=== PATIENT | female | born 1960 | race African-American/Black ===

== ENCOUNTER → 2020-01-20 | Outpatient (CLI) | payer BC | LOC: RAD 15:18 | PROVIDERS: ATTEND Nurse Practitioner Family | DX: Z12.31 Encounter for screening mammogram for malignant neoplasm of breast (principal) ==

== ENCOUNTER 2020-10-15 06:10 | Inpatient (IN) | payer BC ==
[2020-10-15] VITALS (50 sets, daily range): BP systolic 52–122; BP diastolic 39–82
[~2020-10-15] VITALS: Ht 165.1 cm; Wt 106.6 kg
--- NOTE | ~2020-10-15 | HC ---
[facility] [place] [address] CONSULTATION Name: CARLOTA RASHEED Room #: 215-P ADM IN .R.#: [id number] Admission: 10/15/20 Attend Phys: Flory Rivera MD Discharge: Date of : 56 Report #: [id number] THIS REPORT FOR: cc: [facility] - Clinic physician unknown [facility] - Clinic physician unknown Hector Somers MD ~ DATE OF SERVICE: 10/19/2020 HISTORY OF PRESENT ILLNESS: The patient is a 60-year-old -Northern Irish female who was admitted to [facility] on 10/15/2000 with abdominal pain and chest pain. She has a history of exogenous obesity and underwent a tummy tuck with the panniculectomy on 10/13/2020, per chart notes. The patient was noted to have copious amounts of nausea and vomiting starting on 10/14/2020. Unable to tolerate p.o. intake. She then began having a pressure-like chest pain, feeling like she needed to vomit. She was admitted, noted to have an acute renal insufficiency, hypotension, acute blood loss, anemia and atypical chest pain. She had a creatinine that was elevated at 4.0 initially. She was seen by cardiology. Troponin was elevated with EKG changes, thought to be nonischemic. She was seen by gastroenterology and an EEG showed severe esophagitis with mild gastritis. She has significant weakness and debilitation. We are seeing her in rehabilitation medicine consultation. PAST MEDICAL HISTORY: Includes obesity. She had the tummy tuck as noted with the panniculectomy. She has had hypertension, hyperlipidemia, perirectal abscess at age 15. MEDICATIONS: Please see the full medication listing. FAMILY HISTORY: COPD with tobacco abuse by mother. HABITS: No history of tobacco or alcohol abuse. SOCIAL HISTORY: Lives with her spouse in a multilevel house. Gait was without gait aids. She does have one step in and there is either going up or down 5 or 6 steps. REVIEW OF SYSTEMS: No current complaints of chest pain, shortness of breath or abdominal discomfort. PHYSICAL EXAMINATION: GENERAL: A 60-year-old -Northern Irish female in no obvious distress. VITAL SIGNS: Last recorded temperature 37, pulse 90, respirations 18, and blood pressure 106/61. NEUROLOGIC: She is alert, pleasant, overweight white female in no obvious distress. Height 5 feet 5 inches, 235 pounds. She had the lower abdominal drains. Alert, appropriate. Functional range of motion of both upper and lower [facility] [address] [place] [address] CONSULTATION Name: CARLOTA RASHEED Room #: 215-P [facility] IN [facility]#: [id number] Admission: 10/15/20 Attend Phys: Flory Rivera MD Discharge: Date of : 56 Report #: [id number] extremities. Strength is grade 4-/5-3+/5. Tone appeared to be intact. No focal calf swelling. Functionally, she is min assist; sit to stand. Gait was 15 feet min assist with a front-wheeled walker. She is min assist for commode transfers. ASSESSMENT: A 60-year-old -Northern Irish female with the following problem list: 1. Medical complexity with generalized debilitation. 2. Acute blood loss anemia with EGD showing severe erosive esophagitis. 3. Acute renal failure, noted to be prerenal, now improved post fluids. 4. Hypotension, improved post fluids. 5. Status post panniculectomy/tummy tuck procedure. 6. Obesity with BMI 39.1. PLAN: The patient would be a candidate for a short acute in-hospital inpatient rehabilitation stay. We have a rehab maciel here in the hospital itself, which would allow for good continuity of care of the involved physicians that are involved in her care. She has had a significant decline from her premorbid functional status. Insurance precertification issues to be checked. We will be glad to follow along with you. By: [phone] Hector Somers MD /nt
[2020-10-15] MEDS ORDERED: PERCOCET 7.5-31 EAC1 PO (06:24)
[2020-10-15] MEDS ORDERED: ONDANSETRON HCL4 M2 PO (06:24)
[2020-10-15] MEDS ORDERED: CEPHALEXIN500 MG PO (06:25)
[2020-10-15] MEDS ORDERED: DIAZEPAM 5 MG5 M1 PO (06:27)
[2020-10-15] MEDS ORDERED: BENICAR 5 MG5 M1 PO (06:29)
[2020-10-15 07:26] LABS: ABSOLUTE NEUTROPHILS 7.6 thou/uL (1.4-8.2); BASOPHILS 0.1 % (0.0-2.0); HEMATOCRIT 22.9 % (37.0-47.0); LYMPHOCYTES 12.6 % (24.0-44.0); MCH 29.9 pg (26.0-34.0); MCHC 34.8 g/dL (28.0-37.0); MCV 85.8 fL (80.0-100.0); MONOCYTES 15.8 % (1.0-8.0); PLATELET COUNT 193 thou/uL (150-400); POLYS 71.5 % (36.0-66.0); RBC 2.66 mil/uL (4.20-5.00); RDW 12.6 % (10.5-14.5); WBC 10.6 thou/uL (4.0-11.0)
[2020-10-15 07:34] LABS: ANION GAP 0 mmol/L (7-16); BUN 43 mg/dL (7-18); CALCIUM 10.1 mg/dL (8.5-10.1); CHLORIDE 100 mmol/L (98-107); CO2 36 mmol/L (21-32); GLUCOSE 127 mg/dL (74-106); POTASSIUM 4.2 mmol/L (3.5-5.1); SODIUM 136 mmol/L (136-145)
[2020-10-15 07:44] LABS: ALBUMIN 2.8 g/dL (3.4-5.0); LIPASE 36 U/L (73-393); SGOT 10 U/L (15-37); SGPT 13 U/L (14-59); TOTAL BILIRUBIN 0.5 mg/dL (0.2-1.0); TOTAL PROTEIN 5.5 g/dL (6.4-8.2); TROPONIN-I <0.06 ng/mL (<0.06)
--- NOTE | 2020-10-15 07:58 | NUR ---
THIS SPACE BUYER TO BEDSIDE WITH US FOR IV PLACEMENT BUT WAS UNSUCESSFUL ERP UPDATED AT THIS TIME
[2020-10-15 10:04] LABS: URINE BILIRUBIN NEGATIVE (Negative); URINE BLOOD NEGATIVE (Negative); URINE CLARITY CLEAR; URINE COLOR YELLOW; URINE GLUCOSE-RANDOM* NEGATIVE (Negative); URINE KETONES NEGATIVE (Negative); URINE LEUKOCYTES-REFLEX NEGATIVE (Negative); URINE NITRITE-REFLEX NEGATIVE (Negative); URINE PROTEIN (DIPSTICK) NEGATIVE (Negative); URINE UROBILINOGEN 0.2 E.U./dl (0.2-1.0)
[2020-10-15 13:30] LABS: HEMATOCRIT 18.8 % (37.0-47.0); HEMOGLOBIN 6.4 gm/dL (12.0-15.0)
[2020-10-15 18:51] LABS: HEMATOCRIT 20.4 % (37.0-47.0); MCH 30.4 pg (26.0-34.0); MCHC 34.3 g/dL (28.0-37.0); MCV 88.6 fL (80.0-100.0); RBC 2.3 mil/uL (4.20-5.00); RDW 12.9 % (10.5-14.5); WBC 8.2 thou/uL (4.0-11.0)
[2020-10-15 19:01] LABS: CALCIUM 8.7 mg/dL (8.5-10.1)
--- NOTE | 2020-10-15 19:44 | NUR ---
PT ADMITED FROM ER. ADMISSION HISTORY AND ASSESSMENT COMPLETED. PT RECEIVED 1 UNIT OF BLOOD. HAD LOW BP. ORDERS GIVEN TO INFUSE LEVO. NEW ORDERS NOTED.
[2020-10-16] VITALS (58 sets, daily range): BP systolic 90–135; BP diastolic 48–72
[2020-10-16 01:53] LABS: HEMATOCRIT 25.3 % (37.0-47.0); HEMOGLOBIN 8.6 gm/dL (12.0-15.0); MCH 30.5 pg (26.0-34.0); MCV 89.7 fL (80.0-100.0); RBC 2.82 mil/uL (4.20-5.00); RDW 13.5 % (10.5-14.5); WBC 9.9 thou/uL (4.0-11.0)
--- NOTE | 2020-10-16 03:58 | NUR ---
0000 UPDATED PT FATHER AND SISTER KAROLYN ON PT CONDITION
[2020-10-16 09:44] LABS: ALBUMIN 2.4 g/dL (3.4-5.0); CALCIUM 9.5 mg/dL (8.5-10.1); CREATININE 1.7 mg/dL (0.6-1.0); MAGNESIUM 1.9 mg/dL (1.8-2.4); PHOSPHORUS 3.6 mg/dL (2.6-4.7); POTASSIUM 4.6 mmol/L (3.5-5.1)
--- NOTE | 2020-10-16 14:28 | EKG ---
[address] [place] [address] ELECTROCARDIOGRAM REPORT Name: CARLOTA RASHEED Room #: 241-P [facility] IN .R.#: [id number] Admission: 10/15/20 Attend Phys: Flory Rivera MD Discharge: Date of : 56 Report #: [id number] [facility] ED Test Date: 2020-10-15 Test Time: 06:17:15 Pat Name: CARLOTA RASHEED Department: Room: 241 Gender: F Oncology Nurse Navigator: MPA : 1960 Requested By: Hebrert Abarca Order Number: [id number] MD: Gregory Hennessy Measurements Intervals [place] Rate: 91 P: 10 DE: 161 QRS: 15 QRSD: 92 T: 27 QT: 340 QTc: 419 Interpretive Statements Sinus rhythm No significant abnormality No previous ECG available for comparison Electronically Signed On 10-16-2020 14:28:26 CDT by Gregory Hennessy [email or web address] <ELECTRONICALLY SIGNED> By: Gregory Hennessy MD, [facility] 10/16/20 1428 0617 6 Gregory Hennessy MD, FACC /EPI
[2020-10-16 14:30] LABS: ABSOLUTE NEUTROPHILS 4.7 thou/uL (1.4-8.2); BASOPHILS 0.3 % (0.0-2.0); EOSINOPHILS 1.1 % (0.0-3.0); HEMATOCRIT 21.4 % (37.0-47.0); HEMOGLOBIN 7.5 gm/dL (12.0-15.0); LYMPHOCYTES 17.7 % (24.0-44.0); MCV 88.3 fL (80.0-100.0); PLATELET COUNT 134 thou/uL (150-400); POLYS 67.9 % (36.0-66.0); RBC 2.43 mil/uL (4.20-5.00); RDW 13.5 % (10.5-14.5)
--- NOTE | 2020-10-16 14:34 | EKG ---
[address] [place] [address] ELECTROCARDIOGRAM REPORT Name: CARLTOA RASHEED Room #: 241-P [facility] IN M.R.#: [id number] Admission: 10/15/20 Attend Phys: Flory Rivera MD Discharge: Date of : 56 Report #: [id number] [facility] Test Date: 2020-10-15 Test Time: 14:31:49 Pat Name: CARLOTA RASHEED Department: Room: 241 Gender: F Curator Of Education: : 1960 Requested By: Flory Rivera Order Number: [id number] MD: Gregory Hennessy Measurements Intervals [place] Rate: 81 P: 29 FL: 167 QRS: 7 QRSD: 96 T: -1 QT: 373 QTc: 433 Interpretive Statements Sinus rhythm Poor R wave progression Compared to ECG 10/15/2020 06:17:15 No significant change was found Electronically Signed On 10-16-2020 14:33:50 CDT by Gregory Hennessy [email or web address] <ELECTRONICALLY SIGNED> By: Gregory Hennessy MD, [facility] 10/16/20 1433 143 143 Gregory Hennessy MD, FACC /EPI
[2020-10-16 14:36] LABS: CALCIUM 9.2 mg/dL (8.5-10.1); CREATININE 1.1 mg/dL (0.6-1.0); POTASSIUM 4.2 mmol/L (3.5-5.1)
--- NOTE | 2020-10-16 18:51 | NUR ---
PT ALERT AND ORIENTED. VSS. OFF LEVO. PRN AND SCHEDULED PAIN MED GIVEN WITH PARTIAL RELIEF FOR ABD PAIN. SURGICAL INTACT WITH RIVAS. 3 MIGUEL DRAIN INTACT AND PATENT. ORDERS GIVEN TO TRANSFUSE 1 UNIT OF BLOOD. AT THE BEDSIDE. UPDATED ON PT'S PROGRESS AND PLAN OF CARE. ORDERS GIVEN TO TRANSFER PT TO CCU ROOM 215. REPORT CALLED IN TO THE NURSE. PT TRANSFERED TO CCU IN STABLE CONDITION.
[2020-10-17] VITALS (7 sets, daily range): BP systolic 102–134; BP diastolic 39–81
[2020-10-17 05:30] LABS: ALBUMIN 2.2 g/dL (3.4-5.0); CALCIUM 8.4 mg/dL (8.5-10.1); PHOSPHORUS 3.1 mg/dL (2.5-4.9); POTASSIUM 4.4 mmol/L (3.5-5.1)
--- NOTE | 2020-10-17 07:22 | NUR ---
RECEIVED REPORT FROM LUIS ANGEL COELLO.BLOOD TRANSFUSION WAS DONE AT 2030.NO TRANSFUSION REACTION NOTED.PT PREFERS TO SLEEP ON THE RECLINER.PAIN FAIRLY CONTROLLED.HAS BEEN NPO EXCEPT FOR MEDS FOR A POSSIBLE PROCEDURE.MONITOR SHOWS SR.POC CONTINUED.
--- NOTE | 2020-10-17 13:47 | 2DMMODE ---
[place] [address] 2 D/M-MODE ECHOCARDIOGRAM Name: CARLOTA RASHEED Room #: 215-P ADM IN M.R.#: [id number] Admission: 10/15/20 Attend Phys: Flory Rivera MD Discharge: Date of : 56 Report #: [id number] THIS REPORT FOR: cc: [facility] - [facility] physician unknown [facility] - Clinic physician unknown Ankit Cat MD ~ APPROVED REPORT Study performed: 10/17/2020 10:20:05 EXAM: Comprehensive 2D, Doppler, and color-flow Echocardiogram Patient Location: Bedside Room #: 215 Status: routine BSA: 2.12 HR: 87 bpm BP: 125/59 mmHg Rhythm: NSR Other Information Study Quality: Adequate Indications Chest Pain 2D Dimensions IVSd: 12.29 (7-11mm) LVOT Diam: 20.52 (18-24mm) LVDd: 38.78 mm PWd: 13.34 (7-11mm) Ascending Ao: 32.18 (22-36mm) LVDs: 20.38 (25-40mm) Left Atrium: 29.29 (27-40mm) Aortic Root: 29.09 mm Aortic Valve AoV Peak Oleg.: 1.73 m/s AO Peak Gr.: 11.96 mmHg Mitral Valve E/A Ratio: 0.7 MV Decel. Time: 295.70 ms MV E Max Oleg.: 0.61 m/s MV A Oleg.: 0.87 m/s MV PHT: 85.75 ms IVRT: 156.[address] [place] [address] 2 D/M-MODE ECHOCARDIOGRAM Name: CARLOTA RASHEED Room #: 215-P [facility] IN ..#: [id number] Admission: 10/15/20 Attend Phys: Flory Rivera, Discharge: Date of : 56 Report #: [id number] Pulmonary Valve PV Peak Oleg.: 1.33 m/s PV Peak Gr.: 7.05 mmHg Pulmonary Vein P Vein S: 0.46 m/s P Vein A: 0.31 m/s P Vein D: 0.39 m/s P Vein A Dur.: 87.7 msec P Vein S/D Ratio: 1.18 Left Ventricle The left ventricle is normal size. There is normal LV segmental wall motion. Mild concentric left ventricular hypertrophy. Left ventricular systolic function is hyperdynamic. LVEF is 65-70%. Grade I - abnormal relaxation pattern. Right Ventricle The right ventricle is normal size. The right ventricular systolic function is normal. Atria The left atrium size is normal. The right atrium size is normal. Aortic Valve The aortic valve is mildly sclerotic. No aortic regurgitation is present. There is no aortic valvular stenosis. Mitral Valve The mitral valve is normal in structure. There is no mitral valve regurgitation noted. No evidence of mitral valve stenosis. Tricuspid Valve The tricuspid valve is normal in structure. There is no tricuspid valve regurgitation noted. Pulmonic Valve The pulmonary valve is normal in structure. There is no pulmonic valvular regurgitation. Great Vessels The aortic root is normal in size. IVC is normal in size and collapses >50% with inspiration. Pericardium There is no pericardial effusion. [address] [address] 2 D/M-MODE ECHOCARDIOGRAM Name: CARLOTA RASHEED Room #: 215-P [facility] IN ..#: [id number] Admission: 10/15/20 Attend Phys: Flory Rivera, Discharge: Date of : 56 Report #: [id number] <Conclusion> The left ventricle is normal size. Mild concentric left ventricular hypertrophy. Left ventricular systolic function is hyperdynamic. Grade I - abnormal relaxation pattern. The right ventricle is normal size. The left atrium size is normal. The aortic valve is mildly sclerotic. There is no mitral valve regurgitation noted. <ELECTRONICALLY SIGNED> By: Ankit Cat MD 10/17/20 1347 1347 46 Ankit Cat MD /INF
--- NOTE | 2020-10-17 17:47 | NUR ---
PT REFUSING TO AMBULATE OR USE INCENTIVE SPIROMETER. ALL ATTEMPTS HAVE BEEN MADE TO EDUCATED AND MOTIVATE. PT AFEBRILE, ADEQUATE UOP, NO BM, NPO. EGD TODAY, PT HAS NOT RETURNED TO CCU OF 1748. HGB STABLE ON AM RE-DRAW. RIGHT IJ IN PLACE, FRAGOSO LINE DOES NOT DRAW. IV ACCESS TEAM HAS BEEN UPDATED ON RADIOLOGY NOTE TO PULL LINE BACK, AND THAT FRAGOSO PORT DOES NOT DRAW. PT HAS 3 MIGUEL DRAINS FROM PUBIS, SITE'S SHOW MILD ERETHEMA WITH SANGENOUS DRAINAGE WITH SMALL CLOTS PRESENT. ECHO COMPLETED AT BEDSIDE. ABDOMINAL BINDER IN PLACE. PT AND MULTIPLE FAMILY MEMBERS HAVE BEEN THOUROUGHLY UPDATED AND EDUCATED ON PT CONDITION AND POC. PT SLOWLY PROGRESSING TOWARDS POC.
[2020-10-18] VITALS (7 sets, daily range): BP systolic 107–158; BP diastolic 55–77
[2020-10-18 02:20] LABS: ALBUMIN 2.1 g/dL (3.4-5.0); CALCIUM 8.1 mg/dL (8.5-10.1); CREATININE 0.8 mg/dL (0.6-1.0); PHOSPHORUS 2.7 mg/dL (2.6-4.7); POTASSIUM 4.1 mmol/L (3.5-5.1)
--- NOTE | 2020-10-18 05:58 | NUR ---
HEART RATE IN THE 115'S AT SHIFT CHANGE AFTER DAY SHIFT GAVE IV METOPROLOL.PT HEART RATE GOING UP TO IN THE 150'S.DR MOSELEY ORDERED CARDIZEM GTT.PT HR NOW IN THE 80'S.JOSE ARMANDO AND MIGUEL X 3 INTACT.POC CONTINUED.
[2020-10-19 06:25] LABS: ALBUMIN 2.3 g/dL (3.4-5.0); CALCIUM 7.9 mg/dL (8.5-10.1); CREATININE 0.9 mg/dL (0.6-1.0); PHOSPHORUS 2.2 mg/dL (2.5-4.9); POTASSIUM 3.5 mmol/L (3.5-5.1)
--- NOTE | 2020-10-19 07:31 | NUR ---
PATIENTS CARES WERE ASSUMED AT SHIFT CHANGE. PATIENT WAS ASESSED AND MEDS WERE PASSED. PATIENT DID SLEEP APPROX SEVEN HOURS AND WAS UP IN THE CHAIR. SHE DID START THE PROCESS OF GETTING WASHED UP. WAS AT THE BEDSIDE AT THE START OF THE SHIFT. ROUNDS WERE DONE AND PATIENT WAS DOWN GRADED TO A MED SURG PATIENT.WILL CONTINUE TO MONITOR
--- NOTE | 2020-10-19 07:33 | EKG ---
[address] [address] ELECTROCARDIOGRAM REPORT Name: CARLOTA RASHEED Room #: 215- ADM IN M.R.#: [id number] Admission: 10/15/20 Attend Phys: Flory Rivera MD Discharge: Date of : 56 Report #: [id number] [facility] Test Date: 2020-10-17 Test Time: 18:05:46 Pat Name: CARLOTA RASHEED Department: Room: 215 Gender: F Nutrient Management Specialist: UNKNOWN : 1960 Requested By: Flory Rivera Order Number: [id number] MD: Rahat Cortés Measurements Intervals [place] Rate: 115 P: [place]: QRS: 4 QRSD: 88 T: 17 QT: 319 QTc: 442 Interpretive Statements Atrial fibrillation Baseline wander in lead(s) V4 Compared to ECG 10/15/2020 14:31:49 Sinus rhythm no longer present Poor R-wave progression no longer present Electronically Signed On 10-19-2020 7:33:10 CDT by Rahat Cortés [email or web address] <ELECTRONICALLY SIGNED> By: Rahat Cortés MD, [facility] 10/19/20 0733 180 04 Rahat Cortés MD, [facility] /EPI
--- NOTE | 2020-10-19 07:33 | EKG ---
[address] [address] ELECTROCARDIOGRAM REPORT Name: CARLOTA RASHEED Room #: 215-P ADM IN M.R.#: [id number] Admission: 10/15/20 Attend Phys: Flory Rivera MD Discharge: Date of : 56 Report #: [id number] [facility] Test Date: 2020-10-17 Test Time: 18:07:12 Pat Name: CARLOTA RASHEED Department: Room: 215 Gender: F Shopper Insights Manager: UNKNOWN : 1960 Requested By: Flory Rivera Order Number: [id number] MD: Rahat Cortés Measurements Intervals [place] Rate: 131 P: AL: QRS: 7 QRSD: 87 T: 7 QT: 322 QTc: 476 Interpretive Statements Atrial fibrillation Borderline T abnormalities, inferior leads Compared to ECG 10/17/2020 18:05:46 T-wave abnormality now present Electronically Signed On 10-19-2020 7:33:12 CDT by Rahat Cortés [email or web address] <ELECTRONICALLY SIGNED> By: Rahat Cortés MD, [facility] 10/19/20732 06 06 Rahat Cortés MD, FACC /EPI
[2020-10-19 08:00] VITALS: BP 106/61
[2020-10-19 12:22] LABS: HEMATOCRIT 25.4 % (37.0-47.0); HEMOGLOBIN 8.8 gm/dL (12.0-15.0); MCH 30.7 pg (26.0-34.0); MCHC 34.5 g/dL (28.0-37.0); RBC 2.86 mil/uL (4.20-5.00); RDW 13.4 % (10.5-14.5); WBC 8.8 thou/uL (4.0-11.0)
--- NOTE | 2020-10-19 13:14 | P ---
[facility] [place] [address] PROCEDURE REPORT Name: CARLOTA RASHEED Room #: 215-P ADM IN .R.#: [id number] Admission: 10/15/20 Attend Phys: Flory Rivera MD Discharge: Date of : 56 Report #: [id number] THIS REPORT FOR: cc: [facility] - Clinic physician unknown [facility] - Clinic physician unknown Mane Weber MD ~ cc: Jaylen Johns MD DATE OF SERVICE: 10/17/2020 DATE OF PROCEDURE: 10/17/2020 PROCEDURE PERFORMED: Upper endoscopy with biopsies. HISTORY OF PRESENT ILLNESS: The patient is a 60-year-old female with anemia and odynophagia. She underwent plastic surgery of her abdomen 4 days ago and began having throat pain and painful swallowing. On admission, she was noted to be anemic with a hemoglobin of 6.4. She has been transfused 3 units of packed cells. She denies any obvious bright red blood per rectum or melena. She underwent a nuclear medicine bleeding scan on 10/15/2020, which was negative for evidence of GI bleed. She had a CT scan of her abdomen and pelvis. Surgical drains noted to be in place. No abscess. Otherwise, essentially negative. Hemoglobin at this time is 8.8. Plan is for upper endoscopy. DESCRIPTION OF PROCEDURE: The risks and benefits of the procedure were explained to the patient, those risks including but not limited to bleeding, perforation and the risk of sedation. She understood these risks and gave informed consent. Sedation was given using propofol per Anesthesia. Next, using a standard Olympus upper endoscope, the scope was placed in the patient's mouth and advanced under direct vision through the esophagus, stomach and into the second portion of the duodenum. The larynx was normal in appearance. The upper esophagus was normal. In the mid and distal esophagus; however, severe esophagitis was noted with ulcerations. No evidence of active bleeding, but the mucosa was very friable. Biopsies were obtained to rule out the possibility of CMV and herpes and the scope was advanced into the patient's stomach. The gastric fundus and upper body were normal. In the antrum, a mild gastritis was noted. Biopsies were obtained to rule out H. pylori. There was no evidence of bleeding throughout the exam today. The pylorus was normal and patent. The duodenal bulb, first and second portion were all normal. The scope was then withdrawn and the procedure terminated. The patient tolerated the procedure well. IMPRESSION: 1. Severe esophagitis in the mid and distal esophagus. This may be secondary to reflux or infectious etiology. 2. Mild gastritis. [address] [address] PROCEDURE REPORT Name: CARLOTA RASHEED Room #: 215-P [facility]..#: [id number] Admission: 10/15/20 Attend Phys: Flory Rivera MD Discharge: Date of : 56 Report #: [id number] 3. Otherwise, normal upper endoscopy. RECOMMENDATIONS: 1. Await biopsy results. 2. Recommend b.i.d. PPI therapy and liquid Carafate q.a.c. and at bedtime. We will advance diet slowly. 3. Continue to monitor hemoglobin. No signs of bleeding on upper endoscopy today. Thank you for allowing me to participate in her care. <ELECTRONICALLY SIGNED> By: Mane Weber MD 10/19/20 1314 1616 0111 Mane Weber MD /nt
--- NOTE | 2020-10-19 13:56 | NUR ---
SW met w/ pt at bedside to complete assessment on this day. Pt is A&Ox4. NOK: Spouse Fernanda [phone], Daughter Ly [phone] nsurance: BCBS Out of area PCP: Brandi Mac D.O Pt lives in split level home w/ 5 steps inside and 1 entry step into home ADL's: Independent w/ minimal assistance from spouse DME: None HH/SNF/LTACH/DIALYSIS/ACUTE REHAB: NO Hx COVID VACCINE: PFIZER 31 May 2020 Rx: [facility] [address] [place] [address] phone [phone] Transportation: W/C vs Family vehicle DPOA: None - SW encouraged - Pt declined at this time. Addtional Info: SW and pt discussed D/C plan for acute rehab. SW provided pt w/ edcucation about acute rehab. [facility] checking benefits as pt has out of are plan. Pt is agreeable to acute rehab in another facility if [facility] is out of network w/ plan. Pt shared that she has recently retired form [employer] about a month ago. Pt currently on O2 but does not use at home. SW will f.u w/ [facility] acute re[facility] about insurance benefits D/C plan: Acute rehab vs Home w/ HH
--- NOTE | 2020-10-19 15:50 | NUR ---
PATIENT SEEN BY DR. GRANT AND PATIENT IS A REHAB CANDIDATE. PATIENT HAS [employer] OUT OF STATE INSURANCE. INSURANCE COMPANY CONTACTED AND [facility] IS NOT IN NETWORK FOR PATIENT AND OON DEDUCTABLES/MAX OOP/CO-INSURANCES WOULD APPLY. PATIENT MADE DECISION TO GO WITH IN NETWORK PROVIDER OF REHAB SERVICES.
[2020-10-19 16:00] VITALS: BP 111/63
[2020-10-19 21:30] VITALS: BP 123/75
--- NOTE | 2020-10-20 03:46 | NUR ---
PT WAS TRANSFERRED TO THE UNIT FROM IN A STABLE CONDITION.PT UP WITH ASSIST/GB/WALKER TO [facility].PT REF TO WALK TO THE BR DUE TO PAIN.DDRSG INTACT WITH ABD BINDER IN PLACE.[address].PT ON 2L/NC.PT CONT ON IV ABX.PT RESTING ON HER BED AT THIS TIME.CALL LIGHT WITHIN REACH.
[2020-10-20 06:59] LABS: HEMATOCRIT 24.4 % (37.0-47.0); HEMOGLOBIN 8.4 gm/dL (12.0-15.0); MCH 30.4 pg (26.0-34.0); MCHC 34.4 g/dL (28.0-37.0); MCV 88.4 fL (80.0-100.0); RBC 2.76 mil/uL (4.20-5.00); RDW 13.3 % (10.5-14.5); WBC 8.7 thou/uL (4.0-11.0)
[2020-10-20 07:25] VITALS: BP 118/73
--- NOTE | 2020-10-20 08:43 | NUR ---
ON-GOING ASSESSMENT: CM REVIEWED CHART AND SPOKE WITH LIASON FROM WHO DID CONFIRM REHAB HERE AT [facility] IS OUT OF NETWORK. CM MET WITH PATIENT TO DISCUSS THIS AT BEDSIDE AND THAT CM CAN CHECK OTHER ACUTE REHABS THAT MAY BE IN NETWORK. PT IS AGREEABLE WITH PLAN AND WANTED A REFERRAL SENT TO [facility]. CM SPOKE WITH LIAHERNESTO CONNOR WHO REPORTS THEY HAVE BEDS OPEN AND TO SEND REFERRAL AND SHE WILL REVIEW. REFERRAL WAS SENT AND AWAITING INPUT AT THIS TIME.
--- NOTE | 2020-10-20 08:45 | NUR ---
Pt insurance is out of network w/ [facility] acute [facility]hab. SW will send referrals to [facility] phone [phone] fax [phone] & [facility] phone [phone] fax [phone]. W/U in progress
--- NOTE | 2020-10-20 09:44 | EKG ---
[place] [address] [employer] [place] [address] ELECTROCARDIOGRAM REPORT Name: CARLOTA RASHEED Room #: 437-P ADM IN M.R.#: [id number] Admission: 10/15/20 Attend Phys: Flory Rivera MD Discharge: Date of : 56 Report #: [id number] [facility] Test Date: 2020-10-20 Test Time: 09:04:00 Pat Name: CARLOTA RASHEED Department: Room: 437 P Gender: F Bath Tester: TELMA : 1960 Requested By: Tennille Parisi Order Number: [id number] MD: Gregory Hennessy Measurements Intervals [place] Rate: 87 P: 6 MN: 185 QRS: -2 QRSD: 99 T: 45 QT: 372 QTc: 448 Interpretive Statements Sinus rhythm Left ventricular hypertrophy Compared to ECG 10/17/2020 18:07:12 Left ventricular hypertrophy now present Atrial fibrillation no longer present ST and T wave abnormality less pronounced Electronically Signed On 10-20-2020 9:44:45 CDT by Gregory Hennessy [email or web address] <ELECTRONICALLY SIGNED> By: Gregory Hennessy MD, [facility] 10/20/2044 3 Gregory Hennessy MD, [facility] /EPI
--- NOTE | 2020-10-20 09:52 | NUR ---
Latosha grace/ [facility] will meet w/ pt to discuss admission process. Pt is agreeable at this time. [facility] is in network and this has been explained to the pt. W/U in progress
--- NOTE | 2020-10-20 14:07 | PATH ---
[facility] [place] [address] PATHOLOGY RPT PROCEDURE Name: AMBER RASHEED Room #: 437-P ADM IN M.R.#: [id number] Admission: 10/15/20 Date of : 56 Discharge: Report #: [id number] Path Case #: [id number] [facility] Accession Number: [id number] . 01 Material submitted: . PART A: gastrointestinal site - GASTRIC BIOPSY R/O H. PYLORI PART B: esophagus - ESOPHAGEAL BIOPSY R/O CMV AND HSV . 01 Clinical history: . ODYNOPHAGIA JANNETH,N/V,CHEST PAIN . 02 Diagnosis: A. Gastric mucosa, gastric, rule out H. pylori, endoscopic biopsy: - Mild reactive gastropathy. - Negative for intestinal metaplasia or atrophy. - Negative for Helicobacter pylori (properly controlled immunohistochemical stain performed). . B. Squamous mucosa, esophageal, rule out CMV and HSV, endoscopic biopsy: - Fragments of fibrinopurulent material, consistent with ulceration. - Moderate to marked acute esophagitis. - Negative for intestinal metaplasia or dysplasia. (IUV:pit; 10/19/2020) QTP 10/19/2020 1213 Local . 02 Comment: B. CMV* and HSV-1* immunohistochemical stains are ordered as requested on part B and the results of these will be reported in an addendum to follow. . (IUV:pit; 10/19/2020) . *This test was developed and its performance characteristics determined by [facility]. It has not been cleared or approved by the U.S. Food and Drug Administration. The FDA has determined that such clearance or approval is not necessary. This test is used for clinical purposes. It should not be regarded as investigational or for research. This laboratory is certified under the Clinical Laboratory Improvement Amendments of 1988 (CLIA) as qualified to perform high complexity clinical laboratory testing. . 02 Addendum: . This addendum is issued subsequent to reviewing the properly controlled CMV and HSV1 immunohistochemical stains performed on block B1. The stains show no definite viral inclusions present. (IUV:cathy; 10/20/2020) . . [address] [address] PATHOLOGY RPT PROCEDURE Name: AMBER RASHEED Room #: 437-P [facility] IN M.R.#: [id number] Admission: 10/15/20 Date of : 56 Discharge: Report #: [id number] Path Case #: [id number] Professional services performed by [facility] at [facility], [address] [facility] , [place] [address]. Technical services performed by [facility] at [address] [place] [address], [address], [place] [address]. . [facility]10/20/2020 Addendum Electronically Signed by Heidi Toledo MD, Pathologist . 02 Electronically signed: . Heidi Toledo MD, Pathologist NPI- [id number] . 01 Gross description: . A. The specimen is submitted in formalin, labeled "Shahid, Amber, gastric biopsy". Received are 4 segments of pale renee tissue ranging in size from 0.3 to 0.6 cm in maximum dimensions. The specimen is submitted in cassette A1. . B. The specimen is submitted in formalin, labeled "Shahid, Amber, esophageal biopsy". Received are 3 segments of pale renee tissue ranging in size from 0.2 to 0.3 cm in maximum dimensions. The specimen is submitted in cassette B1. ([facility]; 10/18/2020) NRI/NRI 10/18/[address] [place] [address] . 02 Pathologist provided ICD-10: K31.9, K20.90 . 02 CPT . 455369, 588975, K23076, Z35106 Specimen Comment: A courtesy copy of this report has been sent to [phone], [phone] Specimen Comment: [id number] Specimen Comment: Report sent to / DR ACHARYA Performed at: [address] [facility], [place], [place] [id number] MD Bruno Cordon MD Phone: [phone] Performed at: 02 [facility] [address] [facility], [place], [place] [id number] MD Heidi Toledo MD Phone: [phone]
--- NOTE | 2020-10-20 15:35 | NUR ---
Pt is AxOx4. Last BM 10/12/20. She was OOB x 1 person assist to bedside commode. She a 3 MIGUEL drains draining sanguinous fluid. Abdomenal incision is stapled and BILINGUAL HR GENERALIST. She wears an abdominal binder. She has a right central line. She is receiving diet supplements. Does not eat hospital food well. Family is bringing outside food into hospital for her. Pt had a 12 lead EKG today showing NSR. She remains a high fall risk . Bed in low position. Call light is within reach. Will continue to monitor until end of shift.
[2020-10-20 17:00] VITALS: BP 110/66
[2020-10-20 20:59] VITALS: BP 114/69
--- NOTE | 2020-10-21 06:08 | NUR ---
PT SITTING IN CHAIR. PERCOXCET PROVIDING PAIN RELIEF. DENIES NAUSEA. RESTING COMFORTABLY. NO NEEDS VOICED. CALL LIGHT WITHIN REACH. FREQUENT OBSERVATION.
[2020-10-21 07:20] VITALS: BP 114/69
--- NOTE | 2020-10-21 08:33 | NUR ---
ON-GOING ASSESSMENT: cM WENT AND SPOKE WITH PATIENT AGAIN THIS AM. SHE REPORTS THAT HER FIRST CHOICE FOR REHAB IS AGAIN [facility]. CM DISCUSSED THAT [facility] WANTED HER PAIN MANAGED BETTER PRIOR TO STARTING AUTH AND THAT THIS HAS BEEN DISCUSSED WITH THE PHYSICIAN. PT REPORTS THAT HER NEW PAIN MED MAKES HER TIRED BUT SHE FEELS HER PAIN IS OK. CM NOTIF[facility] REQUESTING THEY SUBMIT FOR AUTH JEREMIAS THIS IS PATIENTS FIRST CHOICE OR PT WILL LIKELY NEED TO LOOK ELSEWHERE. LIASON STATING SHE WILL RELAY THIS AM IN THEIR MEETING AND LIKELY START AUTH BUT WILL TALK WITH THEIR PHYSICIAN AND LET CM KNOW. CM WILL CONTINUE TO FOLLOW.
--- NOTE | 2020-10-21 09:56 | EKG ---
[place] [address] [facility] [place] [address] ELECTROCARDIOGRAM REPORT Name: CARLOTA RASHEED Room #: 437- ADM IN M.R.#: [id number] Admission: 10/15/20 Attend Phys: Flory Rivera MD Discharge: Date of : 56 Report #: [id number] Test Date: 2020-10-21 Test Time: 09:35:20 Pat Name: CARLOTA RASHEED Department: Room: 437 Gender: F Reheater: TELMA : 1960 Requested By: Cindy Velasquez Order Number: [id number] MD: Gregory Hennessy Measurements Intervals [place] Rate: 97 P: 30 LA: 184 QRS: 2 QRSD: 94 T: 82 QT: 368 QTc: 468 Interpretive Statements Sinus rhythm Probable LVH with secondary repol abnrm Nonspecific ST segment abnormality Compared to ECG 10/20/2020 09:04:00 [address] change in the ST segments Electronically Signed On 10-21-2020 9:56:19 CDT by Gregory Hennessy [email or web address] <ELECTRONICALLY SIGNED> By: Gregory Hennessy MD, [facility] 10/21/2056 4 4 Gregory Hennessy MD, [facility] /EPI
[2020-10-21 10:16] LABS: HEMATOCRIT 23.6 % (37.0-47.0); HEMOGLOBIN 8.1 gm/dL (12.0-15.0); MCH 30.1 pg (26.0-34.0); MCHC 34.4 g/dL (28.0-37.0); MCV 87.7 fL (80.0-100.0); RBC 2.7 mil/uL (4.20-5.00); RDW 13.5 % (10.5-14.5); WBC 10.7 thou/uL (4.0-11.0)
[2020-10-21 10:26] LABS: CALCIUM 8.2 mg/dL (8.5-10.1); CREATININE 1.2 mg/dL (0.6-1.0)
--- NOTE | 2020-10-21 14:54 | NUR ---
ON-GOING ASSESSMENT: SHEILA SPOKE WITH PHILIP CONNOR FROM [facility] WHO REPORTS THEY RECEIVED INSURANCE AUTH ON PATIENT BUT NOW DO NOT HAVE A BED TODAY AND WILL LIKELY BE TOMORROW. SHE REPORTS TO CONTACT [facility] TOMORROW AT [phone] TO VERIFY AND LIKELY BE ABLE TO COME TO THEM OVER THE WEEKEND ONCE BED CONFIRMED AND SHE WILL FACILITATE DISCHARGE. [facility]X FOR [facility] [phone]. THEY WILL ARRANGE TRANSPORTATION. MAIN NUMBER FOR REPORT FOR [facility] IS [phone]. SHEILA NOTIFIED BEDSIDE RN AND PT THAT INSURANCE HAS APPROVED FOR HER TO GO TO HER FIRST CHOICE [facility] JUST WAITING ON THE BED. LIKELY DISCHARGE TOMORROW/THIS WEEKEND TO [facility] PLEASE FOLLOW UP WITH PHILIP AT NUMBER LISTED.
--- NOTE | 2020-10-21 16:12 | NUR ---
Pt is AXOX4. She does not like to move. She did get up to bathroom 1x today with encouragement. She prefers using the bedside commode. She thinks her IV abx (Vanco) is making her dizzy. Contacted the Dr. med changed to Clindaymcin 300mg po tid. I also asked for vitamins D3 and C. said he would speak to her tomorrow about that. Pt sits in dark room very lethargic all day long. Spoke to [facility] about discharge possibly on Saturday. Labs drawn per Central line and sent down. Pt prefers to sit is recliner call light is within reach. Will monitor until end of shift.
[2020-10-21 16:43] VITALS: BP 115/66
--- NOTE | 2020-10-22 04:52 | NUR ---
Pt. rested quietly at intervals during the night when checked on during frequent rounds. She c/o a headache and wanted some ibuprofen. Keke PINA notified and new order for po ibuprofen one time po (see cpoe) and emar. Prefers to sleep up in recliner chaIr. Up to the bedside comode with minimal assistance.
[2020-10-22 07:29] VITALS: BP 115/64
[2020-10-22 07:39] VITALS: BP 115/64
[2020-10-22 10:00] VITALS: BP 115/64
[2020-10-22] MEDS ORDERED: ELIQUIS5 MG PO (11:19)
[2020-10-22] MEDS ORDERED: CLEOCIN HCL150 MG PO (11:19)
[2020-10-22] MEDS ORDERED: DILTIAZEM 24HR180 M1 PO (11:20)
[2020-10-22] MEDS ORDERED: CARAFATE 11 GM/10 M1 PO (11:20)
[2020-10-22] MEDS ORDERED: PROTONIX 20 MG20 M1 PO (11:20)
--- NOTE | 2020-10-22 12:30 | NUR ---
PT ASSESSED AT START OF SHIFT. [facility] SO PT TRANSFERRING PER W/C TRANSPORT AT THIS TIME. RELISTOR SC GIVEN W/ SUPP AND NO RESULTS YET. VOIDING IN BSC AND BR. AMBULATING WELL W/ WALKER. PHONE REPORT GIVEN TO RECEIVING RN AT [facility]. DR. PALACIOS INFORMED OF TRANSFER.
== END 2020-10-22 12:42 | DRG 380 ==
LOC: ER 06:10 → EROBS 11:18 → ICU 11:18 → 2N 11:18 → ICU 14:15 → 2N 10-16 18:25 → 4S 10-19 22:10
PROVIDERS: Emergency Medicine; Hospitalist; Internal Medicine Nephrology; Nurse Practitioner; ADMIT Internal Medicine; ATTEND Internal Medicine
PROC: 30233N1 Transfusion of Nonautologous Red Blood Cells into Peripheral Vein, Percutaneous Approach (ICD-10-PCS; principal; 2020-10-15)
PROC: 02H633Z Insertion of Infusion Device into Right Atrium, Percutaneous Approach (ICD-10-PCS; principal; 2020-10-15)
PROC: 0DB58ZX Excision of Esophagus, Via Natural or Artificial Opening Endoscopic, Diagnostic (ICD-10-PCS; 2020-10-17)
PROC: 0DB78ZX Excision of Stomach, Pylorus, Via Natural or Artificial Opening Endoscopic, Diagnostic (ICD-10-PCS; 2020-10-17)
DX: K22.11 Ulcer of esophagus with bleeding (principal); R57.1 Hypovolemic shock; N17.9 Acute kidney failure, unspecified; D62 Acute posthemorrhagic anemia; K29.71 Gastritis, unspecified, with bleeding; E66.9 Obesity, unspecified; E78.5 Hyperlipidemia, unspecified; R53.81 Other malaise; I95.9 Hypotension, unspecified; R13.10 Dysphagia, unspecified; I12.9 Hypertensive chronic kidney disease with stage 1 through stage 4 chronic kidney disease, or unspecified chronic kidney disease; N18.9 Chronic kidney disease, unspecified; I48.0 Paroxysmal atrial fibrillation; Z20.822 Contact with and (suspected) exposure to COVID-19; Z88.6 Allergy status to analgesic agent; Z68.39 Body mass index [BMI] 39.0-39.9, adult; Z83.6 Family history of other diseases of the respiratory system; Z79.1 Long term (current) use of non-steroidal anti-inflammatories (NSAID)
CPT/HCPCS: 10078; 10081; 10102; 10797; 62110; 62900; 70005; 85076

== ENCOUNTER → 2020-11-30 | Outpatient (CLI) | payer BC, OTHER ==
[~2020-11-30] MED LIST: BENICAR 5 MG5 M1 PO; CARAFATE 11 GM/10 M1 PO; CEPHALEXIN500 MG PO; CLEOCIN HCL150 MG PO; DIAZEPAM 5 MG5 M1 PO; DILTIAZEM 24HR180 M1 PO; ELIQUIS5 MG PO; ONDANSETRON HCL4 M2 PO; PERCOCET 7.5-31 EAC1 PO; PROTONIX 20 MG20 M1 PO
== END ==
LOC: HYPER 09:18
PROVIDERS: ATTEND Emergency Medicine
DX: T81.31XA Disruption of external operation (surgical) wound, not elsewhere classified, initial encounter (principal); L98.492 Non-pressure chronic ulcer of skin of other sites with fat layer exposed; E66.01 Morbid (severe) obesity due to excess calories; I10 Essential (primary) hypertension; K21.9 Gastro-esophageal reflux disease without esophagitis; Z86.718 Personal history of other venous thrombosis and embolism; Z86.711 Personal history of pulmonary embolism; Z79.02 Long term (current) use of antithrombotics/antiplatelets; Z68.35 Body mass index [BMI] 35.0-35.9, adult; Y92.238 Other place in hospital as the place of occurrence of the external cause; Y83.8 Other surgical procedures as the cause of abnormal reaction of the patient, or of later complication, without mention of misadventure at the time of the procedure

== ENCOUNTER → 2020-12-09 | Outpatient (CLI) | payer BC, OTHER | LOC: HYPER 07:47 | PROVIDERS: ATTEND Emergency Medicine | DX: T81.31XD Disruption of external operation (surgical) wound, not elsewhere classified, subsequent encounter (principal); L98.492 Non-pressure chronic ulcer of skin of other sites with fat layer exposed; I10 Essential (primary) hypertension; E66.01 Morbid (severe) obesity due to excess calories; I26.99 Other pulmonary embolism without acute cor pulmonale; Z68.35 Body mass index [BMI] 35.0-35.9, adult; Z86.718 Personal history of other venous thrombosis and embolism; Z86.711 Personal history of pulmonary embolism; Z79.02 Long term (current) use of antithrombotics/antiplatelets; Z79.01 Long term (current) use of anticoagulants; Z79.899 Other long term (current) drug therapy; Y83.8 Other surgical procedures as the cause of abnormal reaction of the patient, or of later complication, without mention of misadventure at the time of the procedure ==

== ENCOUNTER → 2020-12-21 | Outpatient (CLI) | payer BC, OTHER | LOC: HYPER 07:58 | PROVIDERS: ATTEND Emergency Medicine | DX: T81.31XD Disruption of external operation (surgical) wound, not elsewhere classified, subsequent encounter (principal); L98.492 Non-pressure chronic ulcer of skin of other sites with fat layer exposed; E66.01 Morbid (severe) obesity due to excess calories; I10 Essential (primary) hypertension; K21.9 Gastro-esophageal reflux disease without esophagitis; Z68.35 Body mass index [BMI] 35.0-35.9, adult; Z86.718 Personal history of other venous thrombosis and embolism; Z86.711 Personal history of pulmonary embolism; Z79.02 Long term (current) use of antithrombotics/antiplatelets; Z79.01 Long term (current) use of anticoagulants; Y83.8 Other surgical procedures as the cause of abnormal reaction of the patient, or of later complication, without mention of misadventure at the time of the procedure ==

== ENCOUNTER → 2021-01-05 | Outpatient (CLI) | payer BC, OTHER | LOC: HYPER 08:26 | PROVIDERS: ATTEND Emergency Medicine | DX: T81.31XD Disruption of external operation (surgical) wound, not elsewhere classified, subsequent encounter (principal); L98.492 Non-pressure chronic ulcer of skin of other sites with fat layer exposed; L84 Corns and callosities; E66.01 Morbid (severe) obesity due to excess calories; I10 Essential (primary) hypertension; K21.9 Gastro-esophageal reflux disease without esophagitis; Z68.35 Body mass index [BMI] 35.0-35.9, adult; Z86.718 Personal history of other venous thrombosis and embolism; Z86.711 Personal history of pulmonary embolism; Z79.02 Long term (current) use of antithrombotics/antiplatelets; Z79.01 Long term (current) use of anticoagulants; Y83.8 Other surgical procedures as the cause of abnormal reaction of the patient, or of later complication, without mention of misadventure at the time of the procedure ==

== ENCOUNTER → 2021-01-19 | Outpatient (CLI) | payer BC, OTHER | LOC: HYPER 07:53 | PROVIDERS: ATTEND Emergency Medicine | DX: T81.31XD Disruption of external operation (surgical) wound, not elsewhere classified, subsequent encounter (principal); L98.492 Non-pressure chronic ulcer of skin of other sites with fat layer exposed; L84 Corns and callosities; E66.01 Morbid (severe) obesity due to excess calories; I10 Essential (primary) hypertension; K21.9 Gastro-esophageal reflux disease without esophagitis; Z68.35 Body mass index [BMI] 35.0-35.9, adult; Z86.718 Personal history of other venous thrombosis and embolism; Z86.711 Personal history of pulmonary embolism; Z79.02 Long term (current) use of antithrombotics/antiplatelets; Z79.01 Long term (current) use of anticoagulants; Y83.8 Other surgical procedures as the cause of abnormal reaction of the patient, or of later complication, without mention of misadventure at the time of the procedure ==

== ENCOUNTER → 2021-01-26 | Outpatient (CLI) | payer BC, OTHER | LOC: HYPER 10:04 | PROVIDERS: ATTEND Emergency Medicine | DX: T81.31XD Disruption of external operation (surgical) wound, not elsewhere classified, subsequent encounter (principal); L98.492 Non-pressure chronic ulcer of skin of other sites with fat layer exposed; L84 Corns and callosities; E66.01 Morbid (severe) obesity due to excess calories; I10 Essential (primary) hypertension; K21.9 Gastro-esophageal reflux disease without esophagitis; Z68.35 Body mass index [BMI] 35.0-35.9, adult; Z86.718 Personal history of other venous thrombosis and embolism; Z86.711 Personal history of pulmonary embolism; Z79.02 Long term (current) use of antithrombotics/antiplatelets; Z79.01 Long term (current) use of anticoagulants; Y83.8 Other surgical procedures as the cause of abnormal reaction of the patient, or of later complication, without mention of misadventure at the time of the procedure ==

== ENCOUNTER → 2021-02-13 | Outpatient (CLI) | payer BC, OTHER | LOC: HYPER 08:08 | PROVIDERS: ATTEND Emergency Medicine | DX: T81.31XD Disruption of external operation (surgical) wound, not elsewhere classified, subsequent encounter (principal); L98.492 Non-pressure chronic ulcer of skin of other sites with fat layer exposed; L84 Corns and callosities; E66.01 Morbid (severe) obesity due to excess calories; I10 Essential (primary) hypertension; K21.9 Gastro-esophageal reflux disease without esophagitis; Z68.35 Body mass index [BMI] 35.0-35.9, adult; Z86.718 Personal history of other venous thrombosis and embolism; Z86.711 Personal history of pulmonary embolism; Z79.02 Long term (current) use of antithrombotics/antiplatelets; Z79.01 Long term (current) use of anticoagulants; Y83.8 Other surgical procedures as the cause of abnormal reaction of the patient, or of later complication, without mention of misadventure at the time of the procedure ==

== ENCOUNTER → 2021-02-20 | Outpatient (CLI) | payer BC, OTHER | LOC: HYPER 10:10 | PROVIDERS: ATTEND Emergency Medicine | DX: T81.31XD Disruption of external operation (surgical) wound, not elsewhere classified, subsequent encounter (principal); L98.492 Non-pressure chronic ulcer of skin of other sites with fat layer exposed; L84 Corns and callosities; E66.01 Morbid (severe) obesity due to excess calories; I10 Essential (primary) hypertension; K21.9 Gastro-esophageal reflux disease without esophagitis; Z68.35 Body mass index [BMI] 35.0-35.9, adult; Z86.718 Personal history of other venous thrombosis and embolism; Z86.711 Personal history of pulmonary embolism; Z79.02 Long term (current) use of antithrombotics/antiplatelets; Z79.01 Long term (current) use of anticoagulants; Y83.8 Other surgical procedures as the cause of abnormal reaction of the patient, or of later complication, without mention of misadventure at the time of the procedure ==

== ENCOUNTER → 2021-02-27 | Outpatient (CLI) | payer BC, OTHER | LOC: HYPER 13:34 | PROVIDERS: ATTEND Emergency Medicine | DX: T81.31XD Disruption of external operation (surgical) wound, not elsewhere classified, subsequent encounter (principal); L98.492 Non-pressure chronic ulcer of skin of other sites with fat layer exposed; I10 Essential (primary) hypertension; E66.01 Morbid (severe) obesity due to excess calories; Z68.35 Body mass index [BMI] 35.0-35.9, adult; Z86.711 Personal history of pulmonary embolism; Z86.718 Personal history of other venous thrombosis and embolism; Z79.02 Long term (current) use of antithrombotics/antiplatelets; Z79.01 Long term (current) use of anticoagulants; Z79.899 Other long term (current) drug therapy; Y83.8 Other surgical procedures as the cause of abnormal reaction of the patient, or of later complication, without mention of misadventure at the time of the procedure ==

== ENCOUNTER → 2021-03-13 | Outpatient (CLI) | payer BC, OTHER | LOC: HYPER 09:30 | PROVIDERS: ATTEND Emergency Medicine | DX: T81.31XD Disruption of external operation (surgical) wound, not elsewhere classified, subsequent encounter (principal); L98.492 Non-pressure chronic ulcer of skin of other sites with fat layer exposed; I10 Essential (primary) hypertension; E66.01 Morbid (severe) obesity due to excess calories; Z68.35 Body mass index [BMI] 35.0-35.9, adult; Z86.711 Personal history of pulmonary embolism; Z86.718 Personal history of other venous thrombosis and embolism; Z79.02 Long term (current) use of antithrombotics/antiplatelets; Z79.01 Long term (current) use of anticoagulants; Z79.899 Other long term (current) drug therapy; Y83.8 Other surgical procedures as the cause of abnormal reaction of the patient, or of later complication, without mention of misadventure at the time of the procedure ==

== ENCOUNTER → 2021-03-29 | Outpatient (CLI) | payer BC, OTHER | LOC: HYPER 08:11 | PROVIDERS: ATTEND Emergency Medicine | DX: T81.31XD Disruption of external operation (surgical) wound, not elsewhere classified, subsequent encounter (principal); L98.492 Non-pressure chronic ulcer of skin of other sites with fat layer exposed; L84 Corns and callosities; I10 Essential (primary) hypertension; E66.01 Morbid (severe) obesity due to excess calories; K21.9 Gastro-esophageal reflux disease without esophagitis; Z68.35 Body mass index [BMI] 35.0-35.9, adult; Z86.711 Personal history of pulmonary embolism; Z86.718 Personal history of other venous thrombosis and embolism; Z79.02 Long term (current) use of antithrombotics/antiplatelets; Z79.01 Long term (current) use of anticoagulants; Y83.8 Other surgical procedures as the cause of abnormal reaction of the patient, or of later complication, without mention of misadventure at the time of the procedure ==

== ENCOUNTER → 2021-04-13 | Outpatient (CLI) | payer BC | LOC: HYPER 11:20 | PROVIDERS: ATTEND Emergency Medicine | DX: T81.31XD Disruption of external operation (surgical) wound, not elsewhere classified, subsequent encounter (principal); L98.492 Non-pressure chronic ulcer of skin of other sites with fat layer exposed; L84 Corns and callosities; I10 Essential (primary) hypertension; E66.01 Morbid (severe) obesity due to excess calories; K21.9 Gastro-esophageal reflux disease without esophagitis; Z68.35 Body mass index [BMI] 35.0-35.9, adult; Z86.711 Personal history of pulmonary embolism; Z86.718 Personal history of other venous thrombosis and embolism; Z79.02 Long term (current) use of antithrombotics/antiplatelets; Z79.01 Long term (current) use of anticoagulants; Y83.8 Other surgical procedures as the cause of abnormal reaction of the patient, or of later complication, without mention of misadventure at the time of the procedure ==

== ENCOUNTER → 2021-05-01 | Outpatient (CLI) | payer BC | LOC: HYPER 14:31 | PROVIDERS: ATTEND Emergency Medicine | DX: T81.31XD Disruption of external operation (surgical) wound, not elsewhere classified, subsequent encounter (principal); L98.492 Non-pressure chronic ulcer of skin of other sites with fat layer exposed; I10 Essential (primary) hypertension; E66.01 Morbid (severe) obesity due to excess calories; Z68.35 Body mass index [BMI] 35.0-35.9, adult; Z86.711 Personal history of pulmonary embolism; Z87.01 Personal history of pneumonia (recurrent); Z86.718 Personal history of other venous thrombosis and embolism; Z79.02 Long term (current) use of antithrombotics/antiplatelets; Z79.01 Long term (current) use of anticoagulants; Z79.899 Other long term (current) drug therapy; Y83.8 Other surgical procedures as the cause of abnormal reaction of the patient, or of later complication, without mention of misadventure at the time of the procedure ==

== ENCOUNTER → 2021-05-15 | Outpatient (CLI) | payer BC | LOC: HYPER 09:21 | PROVIDERS: ATTEND Emergency Medicine Emergency Medical Services | DX: T81.31XD Disruption of external operation (surgical) wound, not elsewhere classified, subsequent encounter (principal); L98.492 Non-pressure chronic ulcer of skin of other sites with fat layer exposed; I10 Essential (primary) hypertension; E66.01 Morbid (severe) obesity due to excess calories; Z68.35 Body mass index [BMI] 35.0-35.9, adult; Z86.711 Personal history of pulmonary embolism; Z79.02 Long term (current) use of antithrombotics/antiplatelets; Z86.718 Personal history of other venous thrombosis and embolism; Z79.01 Long term (current) use of anticoagulants; Z79.899 Other long term (current) drug therapy; Y83.8 Other surgical procedures as the cause of abnormal reaction of the patient, or of later complication, without mention of misadventure at the time of the procedure ==

== ENCOUNTER → 2021-05-23 | Outpatient (CLI) | payer BC | LOC: HYPER 13:16 | PROVIDERS: ATTEND Emergency Medicine | DX: T81.31XD Disruption of external operation (surgical) wound, not elsewhere classified, subsequent encounter (principal); L98.492 Non-pressure chronic ulcer of skin of other sites with fat layer exposed; L84 Corns and callosities; I10 Essential (primary) hypertension; E66.01 Morbid (severe) obesity due to excess calories; K21.9 Gastro-esophageal reflux disease without esophagitis; Z68.35 Body mass index [BMI] 35.0-35.9, adult; Z86.711 Personal history of pulmonary embolism; Z79.02 Long term (current) use of antithrombotics/antiplatelets; Z86.718 Personal history of other venous thrombosis and embolism; Z79.01 Long term (current) use of anticoagulants; Y83.8 Other surgical procedures as the cause of abnormal reaction of the patient, or of later complication, without mention of misadventure at the time of the procedure ==

== ENCOUNTER → 2021-05-29 | Outpatient (CLI) | payer BC | LOC: HYPER 11:42 | PROVIDERS: ATTEND Emergency Medicine | DX: T81.31XD Disruption of external operation (surgical) wound, not elsewhere classified, subsequent encounter (principal); L98.492 Non-pressure chronic ulcer of skin of other sites with fat layer exposed; L84 Corns and callosities; I10 Essential (primary) hypertension; E66.01 Morbid (severe) obesity due to excess calories; K21.9 Gastro-esophageal reflux disease without esophagitis; Z68.35 Body mass index [BMI] 35.0-35.9, adult; Z86.711 Personal history of pulmonary embolism; Z79.02 Long term (current) use of antithrombotics/antiplatelets; Z86.718 Personal history of other venous thrombosis and embolism; Z79.01 Long term (current) use of anticoagulants; Y83.8 Other surgical procedures as the cause of abnormal reaction of the patient, or of later complication, without mention of misadventure at the time of the procedure ==